=== PATIENT | female | born 1990 | race Two or more races ===

== ENCOUNTER 2024-07-21 14:22 | Emergency (ER) | payer MEDICAID, OTHER ==
[~2024-07-21] VITALS: Ht 152.4 cm; Wt 59.9 kg
[2024-07-21 15:36] LABS: Urine Bacteria None Seen /hpf (None Seen)
[2024-07-21 15:47] LABS: Urine Blood Negative /uL (Negative); Urine Clarity Turbid (Clear); Urine Color Colorless (Yellow); Urine Mucus FEW (None Seen); Urine Protein, UAD Negative (Negative); Urine Specific Gravity 1.018 (1.001-1.035); Urine Squamous Epithelial Cell MOD /hpf (<5); Urine Urobilinogen Normal (Negative); Urine WBC 4 /HPF (0-5); Urine pH 6.5 (5.0-9.0)
--- NOTE | 2024-07-21 16:06 | ED.PDOC ---
History of Present Illness HPI Comments 34F presents to the ER w/ no prior Hx associated arrives to the c/c of ABD pain. Pt reports that she has been having diffuse ABD pain which "feel like cramps" and light fever for 1 week. Spouse notes that the pt is and is a 51-50. Denies chills, fever, N/V/D, SOB, CP or no other associated symptom's, modifiers, recent injuries or sick contacts at this time. Patient denies any vaginal bleed or vaginal discharge. vital signs were stable on arrival Chief Complaint: Abdominal Pain Time Seen by MD: 15:00 Reviewed Notes: Nurses Notes, Medications, Allergies Allergies: Coded Allergies: NO KNOWN ALLERGIES (Unverified , 07/21/24) Information Source: Patient, Spouse Mode of Arrival: Ambulatory Severity: Moderate Timing: Days Duration: Since onset, Days Prehospital treatment: None Past Medical History PAST MEDICAL HISTORY: Denies Surgical History: Denies all surgeries DRAPERY HEMMER AUTOMATIC History: No Pertinent DRAPERY HEMMER AUTOMATIC History Family History Family History: Reviewed,noncontributory to illness, Unknown Social History Smoker: Cigarettes Alcohol: Denies ETOH Use Drugs: Denies Drug Use Lives In: Home Constitutional: reports: fever; denies: chills, diaphoresis, fatigue, malaise, sweats, weakness, others EENTM: denies: blurred vision, double vision, ear bleeding, ear discharge, ear drainage, ear pain, ear ringing, eye pain, eye redness, hearing loss, mouth pain, mouth swelling, nasal discharge, nose bleeding, nose congestion, nose pain, photophobia, tearing, throat pain, throat swelling, voice changes, others Respiratory: denies: cough, hemoptysis, orthopnea, SOB at rest, shortness of breath, SOB with excertion, stridor, wheezing, others Cardiovascular: denies: chest pain, dizzy spells, diaphoresis, Dyspnea on exertion, edema, irregular heart beat, left arm pain, lightheadedness, palpitations, PND, syncope, others Gastrointestinal: reports: abdominal pain, nausea; denies: abdomen distended, blood streaked bowels, constipated, diarrhea, dysphagia, difficulty swallowing, hematemesis, melena, poor appetite, poor fluid intake, rectal bleeding, rectal pain, vomiting, others Genitourinary: denies: abnormal vagina bleeding, burning, dyspareunia, dysuria, flank pain, frequency, hematuria, incontinence, pain, , vagina dischar ge, urgency, others Neurological: denies: dizziness, fainting, headache, left sided numbness, left sided weakness, numbness, paresthesia, pre-existing deficit, right sided numbness, right sided weakness, seizure, speech problems, tingling, tremors, weakness, others Musculoskeletal: denies: back pain, gout, joint pain, joint swelling, muscle pain, muscle stiffness, neck pain, others Integumetry: denies: bruises, change in color, change in hair/nails, dryness, laceration, lesions, lumps, rash, wounds, others Allergic/Immunocompromised: denies: Difficulty Healing, Frequent Infections, Hives, Itching, others Hematologic/Lymphatic: denies: anemia, blood clots, easy bleeding, easy bruising, swollen glands, others Endocrine: denies: excessive hunger, excessive sweating, excessive thirst, excessive urination, flushing, intolerance to cold, intolerance to heat, unexplained weight gain, unexplained weight loss, others Psychiatric: reports: suicidal; denies: anxiety, bipolar disorder, depression, hopeless, panic disorder, schizophrenia, sleepless, others All Other Systems: Reviewed and Negative Physical Exam General Appearance: Mild Distress (Patient has a mild discomfort at time of evaluation.), Normal HEENT: Normal ENT Inspection, Pharynx Normal, TMs Normal Neck: Full Range of Motion, Non-Tender, Normal, Normal Inspection Respiratory: Chest Non-Tender, Lungs Clear, No Accessory Muscle Use, No Respiratory Distress, Normal Breath Sounds Cardiovascular: No Edema, No JVD, No Murmur, No Gallop, Normal Peripheral Pulses, Regular Rate/Rhythm Breast Exam: Deferred Gastrointestinal: No Pulsatile Mass, Normal Bowel Sounds, Soft, Other ( Diffuse abdominal tenderness to palpation throughout the periumbilical and epigastric region. No signs of trauma. Abdomen was reasonably soft. Mild suprapubic tenderness.) Genitalia: Deferred Pelvic: Deferred Rectal: Deferred Extremities: No calf tenderness, Normal capillary refill, Normal inspection, Normal range of motion, Non-tender, No pedal edema Musculoskeletal : Apperance: Normal Neurologic: Alert, No Motor Deficits, Normal Affect, Normal Mood, No Sensory Deficits Cerebellar Function: Normal Reflexes: Normal Skin: Dry, Normal Color, Warm Lymphatic: No Adenopathy Was a procedure done? Was a procedure done?: No Differential Dx Considerations may include: , sepsis, electrolyte abnormality, UTI, viral gastroenteritis X-Ray, Labs, Meds, VS Vital Signs Date Time Temp Pulse Resp B/P (MAP) Pulse Ox O2 Delivery O2 Flow Rate FiO2 07/21/24 16:20 98.1 93 16 109/67 (81) 99 98.1 07/21/24 16:20 93 16 99 Room Air 07/21/24 16:18 74 19 95 Room Air* 0 21 07/21/24 15:38 98.0 99 16 116/83 (94) 100 98.0 Lab Test 07/21/24 15:48 07/21/24 15:27 Range/Units White Blood Count 9.3 4.4-10.8 10^3/uL Red Blood Count 4.47 4.0-5.20 10^6/uL Hemoglobin 14.1 12.2-16.2 g/dL Hematocrit 41.4 36.0-46.0 % Mean Corpuscular Volume 92.6 80.0-100.0 fL Mean Corpuscular Hemoglobin 31.5 28.0-32.0 pg Mean Corpuscular Hemoglobin Concent 34.0 32.0-36.0 g/dL Red Cell Distribution Width 13.8 11.8-14.3 % Platelet Count 241 140-450 10^3/uL Mean Platelet Volume 8.8 6.9-10.8 fL Neutrophils (%) (Auto) 74.8 37.0-80.0 % Lymphocytes (%) (Auto) 16.6 10.0-50.0 % Monocytes (%) (Auto) 5.7 0.0-12.0 % Eosinophils (%) (Auto) 2.5 0.0-7.0 % Basophils (%) (Auto) 0.4 0.0-2.0 % Neutrophils # (Auto) 7.0 1.6-8.6 10 ^3/uL Lymphocytes # (Auto) 1.5 0.4-5.4 10 ^3/uL Monocytes # (Auto) 0.5 0-1.3 10 ^3/uL Eosinophils # (Auto) 0.2 0-0.8 10 ^3/uL Basophils # (Auto) 0 0-0.2 10 ^3/uL Nucleated Red Blood Cells 0.0 % Sodium Level 137 136-145 mmol/L Potassium Level 3.7 3.5-5.1 mmol/L Chloride Level 105 98-107 mmol/L Carbon Dioxide Level 25 20-31 mmol/L Anion Gap 7 5-15 Blood Urea Nitrogen 5 L 9-23 mg/dL Creatinine 0.42 L 0.550-1.02 mg/dL Glomerular Filtration Rate Calc 130 >90 mL/min BUN/Creatinine Ratio 11.9 10.0-20.0 Serum Glucose 105 74-106 mg/dL Calcium Level 9.2 8.7-10.4 mg/dL Lipase 26 12-53 U/L Beta HCG, Quantitative 67972.1 H 1.5-4.2 mIU/mL Urine Color Colorless Yellow Urine Clarity Turbid H Clear Urine pH 6.5 5.0-9.0 Urine Specific [place] 1.018 1.001-1.035 Urine Protein Negative Negative Urine Ketones Negative Negative Urine Blood Negative Negative /uL Urine Nitrite 2+ H Negative Urine Bilirubin Negative Negative Urine Urobilinogen Normal Negative mg/dL Urine Leukocyte Esterase 2+ Negative /uL Urine RBC 2 0 - 4 /hpf Urine Microscopic WBC 4 0-5 /HPF Urine Squamous Epithelial Cells Mod <5 /hpf Urine Bacteria None seen None Seen /hpf Urine Mucus Few None Seen Urine Glucose Normal Normal mg/dL Current Medications Medications (Trade) Dose Ordered Sig/Abrahan Route Start Time Stop Time Status Last Admin Dicyclomine HCl (Bentyl Injection) 20 mg ONCE ONCE IM 07/21/24 15:45 07/21/24 15:46 DC 07/21/24 16:15 Ondansetron HCl (Zofran Po) 4 mg ONCE ONCE PO 07/21/24 15:45 07/21/24 15:46 DC 07/21/24 16:15 X-Ray, Labs, Meds, VS Comment All studies were reviewed by me personally. [place] [address]. additional serum laboratories were unremarkable for any systemic processes. Urinalysis confirmed a UTI. Patient will be given antibiotics to address her urinary tract infection and has been advised to follow up with a public address system installer for management of her newly diagnosed . Time of 1ST Reevaluation: 17:08 Reevaluation 1ST: Improved Consultation: PCP, committee member Patient Education/Counseling: Diagnosis, Treatment, Prognosis Family Education/Counseling: Diagnosis, Treatment, Prognosis Departure 1 Departure Time of Disposition: 17:09 Impression: Primary Impression: Additional Impression: UTI (urinary tract infection) Disposition: HOME / SELF CARE / HOMELESS Condition: Stable Additional Instructions: Advised patient utilize antibiotics as directed, additional medication as needed and follow up with public address system installer for management of her Newly diagnosed . e-Prescriptions Acetaminophen (Acetaminophen) 500 Mg Tab 500 MG PO Q4HP PRN, #30 TAB Prov: PUJA HINOJOSA PAC 07/21/24 Ondansetron Odt 4MG Tab (ZOFRAN PO) 4 Mg Tb 4 MG PO Q6HP PRN, #20 TAB ODT TAB-DISSOLVE IN MOUTH, THEN SWALLOW Prov: PUJA HINOJOSA PAC 07/21/24 Cephalexin (KEFLEX CAPSULE) 250 Mg Cp 1 CAP PO QID for 7 Days, #28 CAP Prov: PUJA HINOJOSA 07/21/24 Discharged With: Self, Spouse Critical Care Note Critical Care Time?: No Stability Stability form required: No Heart Score Heart Score: Heart Score Response (Comments) Value History N/A 0 EKG N/A 0 Age N/A 0 Risk Factors N/A 0 Troponin N/A 0 Total 0 I personally scribed for PUJA HINOJOSA PAC ([email or web address]) on 07/21/24 at 16:06. Electronically submitted by Yury Pino ([email or web address]). PUJA HINOJOSA PAC Jul 21, 2024 16:06
[2024-07-21 16:14] LABS: Basophils # (auto) 0 10 ^3/uL (0-0.2); Basophils % (auto) 0.4 % (0.0-2.0); Eosinophils # (auto) 0.2 10 ^3/uL (0-0.8); Eosinophils % (auto) 2.5 % (0.0-7.0); Hematocrit 41.4 % (36.0-46.0); Hemoglobin 14.1 g/dL (12.2-16.2); Lymphocytes # (auto) 1.5 10 ^3/uL (0.4-5.4); Lymphocytes % (auto) 16.6 % (10.0-50.0); Mean Corpuscular Hemoglobin 31.5 pg (28.0-32.0); Mean Corpuscular Volume 92.6 fL (80.0-100.0); Monocytes # (auto) 0.5 10 ^3/uL (0-1.3); Monocytes % (auto) 5.7 % (0.0-12.0); Neutrophils % (auto) 74.8 % (37.0-80.0); Platelet Count (auto) 241 10^3/uL (140-450); Red Blood Cells 4.47 10^6/uL (4.0-5.20); Red Cell Distribution Width 13.8 % (11.8-14.3); White Blood Cell 9.3 10^3/uL (4.4-10.8)
[2024-07-21] MEDS: DICYCLOMINE HCL (10MG/ML) 2 ML AMPULE IM ONE (16:15)
[2024-07-21] MEDS: ONDANSETRON ODT 4 MG TAB PO ONE (16:15)
[2024-07-21 16:18] VITALS: PULSE 74; RESP 19; O2SAT 95
[2024-07-21 16:20] VITALS: BP 109/67; PULSE 93; RESP 16; TEMP 98.1; O2SAT 99
[2024-07-21 16:29] LABS: Chloride 105 mmol/L (98-107); Potassium 3.7 mmol/L (3.5-5.1); Sodium 137 mmol/L (136-145)
[2024-07-21 16:30] LABS: Anion Gap 7 (5-15); Calcium 9.2 mg/dL (8.7-10.4); Carbon Dioxide 25 mmol/L (20-31)
[2024-07-21 16:35] LABS: BUN/Creatinine Ratio 11.9 (10.0-20.0); Glucose 105 mg/dL (74-106); Lipase 26 U/L (12-53)
[2024-07-21 16:40] LABS: Blood Urea Nitrogen 5 mg/dL (9-23)
[2024-07-21] MEDS ORDERED: ZOFR4T PO (17:10)
[2024-07-21] MEDS ORDERED: CEPH250C PO (17:10)
[2024-07-21] MEDS ORDERED: ACET500T58 PO (17:10)
== END 2024-07-21 17:48 | disposition home or self-care (01) ==
LOC: ER 14:30
DX: O23.41 Unspecified infection of urinary tract in pregnancy, first trimester (principal); N39.0 Urinary tract infection, site not specified; R10.2 Pelvic and perineal pain; O99.331 Smoking (tobacco) complicating pregnancy, first trimester; F17.210 Nicotine dependence, cigarettes, uncomplicated; Z3A.00 Weeks of gestation of pregnancy not specified
CPT/HCPCS: 36415; 80048; 81001; 83690; 84702; 85025; 96372; 99283; J0500; Q0162

== ENCOUNTER 2024-10-19 17:45 | Observation (INO) | payer MEDICAID ==
[~2024-10-19] VITALS: Ht 152.4 cm; Wt 63.5 kg
[~2024-10-19 17:45] MED LIST: ACET500T58 PO; CEPH250C PO; ZOFR4T PO
--- NOTE | 2024-10-19 20:34 | DVH ---
OB ULTRASOUND, LIMITED CLINICAL INDICATION: contractions TECHNIQUE: Multiple grayscale ultrasound and M-mode images were obtained of the pelvis for evaluation of intrauterine . COMPARISON: None FINDINGS: A single living fetus is seen in cephalic presentation. Biparietal diameter: 7.21 cm (29 weeks, 5 days) Head Circumference: 27.86 cm (30 weeks, 3 days) Abdomen Circumference: 27.18 cm (31 weeks, 2 days) Femur Length: 5.91 cm (30 weeks, 6 days) Estimated weight: 1667 grams (+/- 250 grams). 3 lb 11 oz Placenta: Anterior. Amniotic fluid: Visibly normal. Cervical length is 3.6 cm and closed heart rate: 128 beats/min. A complete anatomic survey was not performed on this exam. IMPRESSION: Single living intrauterine with an estimated gestational age of 30 weeks, 4 days, corresp onding to an estimated date of delivery of 12/24/2024.
[2024-10-19 21:18] LABS: Urine Bacteria FEW /hpf (None Seen); Urine Blood Negative /uL (Negative); Urine Clarity Turbid (Clear); Urine Color Dark-Yellow (Yellow); Urine Mucus FEW (None Seen); Urine Protein, UAD 1+ (Negative); Urine Specific Gravity 1.036 (1.001-1.035); Urine Squamous Epithelial Cell MOD /hpf (<5); Urine Urobilinogen 8 mg/dL (Negative); Urine WBC 11 /HPF (0-5)
[2024-10-19 21:45] LABS: Amphetamine Screen, Urine Pos (NEGATIVE); Barbiturate Scree,Urine Neg (NEGATIVE); Benzodiazephine Screen, Urine Neg (NEGATIVE); Cannabinoid Screen, Urine Neg (NEGATIVE); Cocaine Screen, Urine Neg (NEGATIVE); Opiate Scree,Urine Neg (NEGATIVE); Phencyclidine Screen, Urine Neg (NEGATIVE)
--- NOTE | 2024-10-24 14:29 | DVHDS2 ---
Physician Discharge Progress N Final Diagnosis: ucs left ama Operations or Procedures: Operations or Procedures nst,sono nst reactive reviewed Condition on Discharge: Good Disposition: Home Discharge Instructions: Diet: Regular Activity: No Restrictions, As Tolerated Medications: na Follow Up Care: Specialist: left ama Discharge Statement: "Patient was advised to return to the ER or call 911 if any headaches, dizziness, shortness of breath, chest pain, abdominal pain, bleeding, fevers, or worsening of medical condition. Patient was counseled about treatment plan, medications, possible side effects, patientverbalized understanding. All questions were answered to the best of my ability. This discharge took greater then 30 minutes in planning, reviewing documentation, counseling the patient, and discussing with other team members." Visit Coding OBGYN Date of Service: Oct 19, 2024 Billing Provider: JALEEL RICH DO PIN DRAFTING MACHINE TENDER Common Visit Codes: 15060-QOXIAXZ OBS CARE (HIGH) PIN DRAFTING MACHINE TENDER Procedure Codes: 84853-94- NON-STRESS TEST JALEEL RICH DO Oct 24, 2024 14:29
== END 2024-10-19 21:43 | disposition home or self-care (01) ==
LOC: LDRP 17:45
PROVIDERS: ADMIT Obstetrics & Gynecology; ATTEND Obstetrics & Gynecology
DX: O47.03 False labor before 37 completed weeks of gestation, third trimester (principal); Z36.89 Encounter for other specified antenatal screening; Z79.899 Other long term (current) drug therapy; Z3A.31 31 weeks gestation of pregnancy
CPT/HCPCS: 59025; 76805; 80307; 81001; 81002; 94760; G0378

== ENCOUNTER 2024-11-04 03:50 | Inpatient (IN) | payer MEDICAID ==
[~2024-11-04] VITALS: Ht 154.9 cm; Wt 54.4 kg
[2024-11-04] MEDS: LACTATED RINGER'S 1,000 ML IV SCH (04:10)
[2024-11-04] MEDS: CLINDAMYCIN 900MG IV 50 ML IV ONE ×2 (04:29→05:00)
[2024-11-04] MEDS ORDERED: WITCH HAZEL-GLYCERIN PAD TOP PRN (04:30)
[2024-11-04] MEDS ORDERED: DERMOPLAST 60ML BOTTLE TOP PRN (04:30)
[2024-11-04] MEDS ORDERED: PHISODERM TOP SOLN 240ML BTL TOP PRN (04:30)
[2024-11-04] MEDS ORDERED: LIDOCAINE 2%HCL (LOCAL ANESTH.) INJ 20ML MDV IJ PRN (04:30)
[2024-11-04 04:37] LABS: Basophils # (auto) 0.1 10 ^3/uL (0-0.2); Basophils % (auto) 0.8 % (0.0-2.0); Eosinophils # (auto) 0 10 ^3/uL (0-0.8); Eosinophils % (auto) 0.3 % (0.0-7.0); Hematocrit 35.9 % (36.0-46.0); Hemoglobin 12.3 g/dL (12.2-16.2); Lymphocytes # (auto) 2.7 10 ^3/uL (0.4-5.4); Lymphocytes % (auto) 22.7 % (10.0-50.0); Mean Corpuscular Hemoglobin 29.8 pg (28.0-32.0); Mean Corpuscular Hgb Conc. 34.3 g/dL (32.0-36.0); Mean Corpuscular Volume 86.7 fL (80.0-100.0); Monocytes # (auto) 0.7 10 ^3/uL (0-1.3); Neutrophils # (auto) 8.4 10 ^3/uL (1.6-8.6); Neutrophils % (auto) 70.2 % (37.0-80.0); Nucleated Red Blood Cells % 0.1 %; Platelet Count (auto) 261 10^3/uL (140-450); Red Blood Cells 4.14 10^6/uL (4.0-5.20); Red Cell Distribution Width 14.3 % (11.8-14.3); White Blood Cell 11.9 10^3/uL (4.4-10.8)
[2024-11-04 04:56] LABS: Albumin 3.7 g/dL (3.2-4.8); Anion Gap 10 (5-15); Aspartate Aminotransferase 14 U/L (<34); BUN/Creatinine Ratio 15.8 (10.0-20.0); Bilirubin, Total 0.6 mg/dL (0.2-1.0); Blood Urea Nitrogen 9 mg/dL (9-23); Calcium 8.9 mg/dL (8.7-10.4); Carbon Dioxide 21 mmol/L (20-31); Chloride 104 mmol/L (98-107); Glucose 89 mg/dL (74-106); Potassium 4.1 mmol/L (3.5-5.1); Total Protein 6.4 g/dL (5.7-8.2)
[2024-11-04 04:58] LABS: Alanine Aminotransferase < 9 U/L (7-40); Alkaline Phosphatase 177 U/L (46-116); Sodium 135 mmol/L (136-145)
[2024-11-04] MEDS: METHYLERGONOVINE MALEATE 0.2 MG/ML AMP IM ONE (04:58)
[2024-11-04] MEDS: DIPHENOXYLATE W/ATROPINE 2.5 MG TAB PO ONE (05:00)
[2024-11-04] MEDS: DIPHENOXYLATE W/ATROPINE 2.5 MG TAB ONE (05:04)
[2024-11-04 05:05] LABS: INR 0.89 (0.9-1.15); Partial Thromboplastin Time 26.8 SEC (24.5-34.5); Prothrombin Time 9.5 sec (9.3-11.8)
[2024-11-04] MEDS: CARBOPROST TROMETHAMINE 250 MCG/1ML VIAL IM ONE ×2 (05:05→05:19)
[2024-11-04] MEDS: ONDANSETRON HCL 4 MG/2 ML VIAL ONE (05:05)
--- NOTE | 2024-11-04 05:12 | DVH ---
EXAM: US OB ULTRASOUND COMP GTR 14 WKS HISTORY: no pnc TECHNIQUE: Multiple real-time grayscale images of the gravid uterus with duplex Doppler color flow an d M-mode spectral analysis. COMPARISON: US OB ULTRASOUND COMP GTR 14 WKS on DOS: 10/19/24 FINDINGS: IUP single live fetus at 32 weeks 4 days average ultrasound age (AUA) based on composite averages of the BPD, head circumference, abdominal circumference and femur length Age based on (early ultrasound) : 32 weeks 4 day MEASUREMENTS: BPD: 8.0 cm GA: 30 w 6 d HC: 30.5 cm GA: 33 w 6 d AC: 28.6 cm GA: 32 w 4 d FL: 6.1 cm GA: 31 w 5d Estimated weight 1964 grams; 44th percentile. heart rate 153 beats per minute Active labor. ANATOMIC SURVEY: Complete anatomic survey not performed at this time. Cephalic Presentation Anterior placenta without previa or abruption IMPRESSION: 1. IUP single live fetus at 32 weeks 4 days AUA corresponding to an VINCENZO of 12/26/2024. 2. No abnormality detected. Limited exam secondary to active labor.
[2024-11-04 05:30] LABS: Uric Acid 5.2 mg/dL (3.1-7.8)
--- NOTE | 2024-11-04 05:38 | DVHHP2 ---
OB CC & HPI Date Date of Admission: Nov 04, 2024 Patient Identification: : unknown Para: unknown EDC: Dec 24, 2024 EGA: 32wks Chief Complaints: Reason for admission: active labor, labor Admission Nurse Assessment Rev: No History of Present Complaints pt is admitted for labor ,active labor ,rom for many days according to pt. pt had a visit to er which was held 51-50 she gives hx of and another report of .pt is mentally not able to give good hx.she presented in active labor with rom at 7cm Past Medical History Cardiac: No pertinent Hx Pulmonary: No pertinent Hx Central Nervous System: No pertinent Hx GI: No pertinent Hx Hemotology/Oncology: No pertinent Hx Hepatobiliary: No pertinent Hx Psychiatric: No pertinent Hx Musculoskeletal: No pertinent Hx Rheumotologic: No pertinent Hx Infectious Disease: No peritnent Hx ENT: No pertinent Hx Renal/: No pertinent Hx Endocrine: No pertinent Hx Dermatology: No pertinent Hx Past Surgical History: No pertinent Hx OB History OB History Care: None Ultrasounds: No ultrasounds Obstetrical Complications: None Medical Complications: None Allergies: Coded Allergies: Latex (Verified Allergy, Severe, 10/19/24) Home Meds Active Scripts Acetaminophen (Acetaminophen) 500 Mg Tab, 500 MG PO Q4HP PRN, #30 TAB Prov:PUJA HINOJOSA PAC 07/21/24 Ondansetron Odt 4MG Tab (ZOFRAN PO) 4 Mg Tb, 4 MG PO Q6HP PRN, #20 TAB ODT TAB-DISSOLVE IN MOUTH, THEN SWALLOW Prov:PUJA HINOJOSA PAC 07/21/24 Cephalexin (KEFLEX CAPSULE) 250 Mg Cp, 1 CAP PO QID for 7 Days, #28 CAP Prov:PUJA HINOJOSA PAC 07/21/24 Current Medications Current Medications Medications (Trade) Dose Ordered Sig/Abrahan Route PRN Reason Start Time Stop Time Status Last Admin Lactated Ringer's 1,000 ml @ 125 mls/hr Q8H IV 11/04/24 04:30 11/04/24 04:10 Witchilango Adeola (Tucks) 1 pad PRN PRN TOP PERINEAL AREA DISCOMFORT 11/04/24 04:30 Sodium Lauryl Sulfate (Phisoderm) 240 ml PRN PRN TOP PERINEAL AREA DISCOMFORT 11/04/24 04:30 Benzocaine (Dermoplast) 1 applic PRN PRN TOP PERINEAL AREA DISCOMFORT 11/04/24 04:30 Lidocaine HCl (Xylocaine) 20 ml ONCE PRN IJ PERINEAL AREA DISCOMFORT 11/04/24 04:30 Family & Social History Family/Social History Blood Type: Unknown Rubella: unknown RPR/VDRL: Unknown GBS Status: Unknown HBsAG: Unknown Review of Systems Constitutional: No symptom reported Ears, Nose, & Throat: No symptom reported Eyes: No symptom reported Pulmonary/Respiratory: No symptom reported Cardiovascular: No symptom reported Gastrointestinal: No symptom reported Genitourinary: No symptom reported Musculoskeletal: No symptom reported Skin: No symptom reported Psychiatric: No symptom reported Endocrine: No symptom reported Hemotologic/Lymphatic: No symptom reported OB Admission Exam Physical Exam HEENT: TMs Normal, Fontanelles Normal, Nasal Mucosa Normal, Eyes non-injected, Oropharynx Normal, PERRLA, Moist Membranes, EOMI Heart: Rhythm Normal Lungs: Clear Abdomen: Non tender Extremities: Normal Reflexes: Normal Cervical Dilatation: 10cm Effacement: 100% Station: +2 Membranes: Ruptured Amniotic Fluid: Clear Heart Rate: 130's Accelerations: Accelerations Present Decelerations: No Decelerations Short Term Variability: Present Halfway Variability: Average (6-25) Contractions on Admission: < 5 Minutes Apart Intensity: Moderate OB Plan Plan Admitting Diagnosis: PTL 32wks no care,ama,meth positive ,previous cs x1 Plan: Expectant Management Other Plan: informed consent obtained Visit Coding OBGYN Date of Service: Nov 04, 2024 Billing Provider: JALEEL RICH DO PHYSICAL AERODYNAMICIST Common Visit Codes: [id number] OBS CARE (HIGH) PHYSICAL AERODYNAMICIST Procedure Codes: 26999-57- NON-STRESS TEST JALEEL RICH DO Nov 04, 2024 05:38
--- NOTE | 2024-11-04 05:42 | LDN2 ---
Labor and Delivery Note Date 11/04/24 Age 34 unknown g20? Para 15 ? EDC 8-17 EGA 32 wks Diagnosis labor,ama,no care,drug use Vaginal Delivery: VTX Vacuum Assisted: No Placenta: Spontaneous Sex: Male Apgars 6-7 Nuchal Cord Transected: No Amniotic Fluid: Clear Anesthesia none Episiotomy: No Extension: No EBL 300ml Labs Laboratory Tests 11/04/24 04:23: HIV (1&2) Antibody Negative Complications none Conditions stable Comments/Significant Med Brinda spec exam no cxal lac Visit Coding OBGYN Date of Service: Nov 04, 2024 Billing Provider: JALEEL RICH DO HOME HEALTH NURSE Common Visit Codes: [id number] OBS CARE (HIGH) HOME HEALTH NURSE Procedure Codes: 96740-VVC DELIVERY ONLY JALEEL RICH DO Nov 04, 2024 05:42
[2024-11-04 05:56] LABS: Urine Bacteria None Seen /hpf (None Seen)
[2024-11-04] MEDS: DEXTROSE 10% 250 ML IV ONE (06:00)
[2024-11-04 06:35] LABS: Urine Blood Negative /uL (Negative); Urine Clarity Clear (Clear); Urine Color Yellow (Yellow); Urine Mucus FEW (None Seen); Urine Protein, UAD 1+ (Negative); Urine Squamous Epithelial Cell FEW /hpf (<5); Urine Urobilinogen 3 mg/dL (Negative); Urine WBC 2 /HPF (0-5)
[2024-11-04 06:55] LABS: Amphetamine Screen, Urine Pos (NEGATIVE); Barbiturate Scree,Urine Neg (NEGATIVE); Benzodiazephine Screen, Urine Neg (NEGATIVE); Cannabinoid Screen, Urine Neg (NEGATIVE); Cocaine Screen, Urine Neg (NEGATIVE); Opiate Scree,Urine Neg (NEGATIVE); Phencyclidine Screen, Urine Neg (NEGATIVE)
[2024-11-04] MEDS ORDERED: ONDANSETRON ODT 4 MG TAB PO PRN (07:45)
[2024-11-04] MEDS ORDERED: IBUPROFEN 600 MG TAB PO PRN (07:45)
[2024-11-04] MEDS: LACT. RINGERS/OXYTOCIN 20UNITS 500 ML IV ONE ×2 (08:10→08:11)
[2024-11-04] MEDS: TRANEXAMIC ACID 1,000 MG in SODIUM CHL 0.9% 100 ML IV ONE (08:12)
[2024-11-04] MEDS: ONDANSETRON HCL 4 MG/2 ML VIAL IV PRN (08:13)
[2024-11-04] MEDS: CARBOPROST TROMETHAMINE 250 MCG/1ML VIAL IM PRN (08:13)
[2024-11-04] MEDS: METHYLERGONOVINE MALEATE 0.2 MG/ML AMP IM PRN (08:13)
[2024-11-04 11:00] VITALS: BP 113/77; PULSE 59; RESP 20; TEMP 98.2; O2SAT 99
[2024-11-04] MEDS: ACETAMINOPHEN 325 MG TAB PO PRN (11:55)
[2024-11-04 15:00] VITALS: BP 91/63; PULSE 66; RESP 15; TEMP 98.7; O2SAT 99
--- NOTE | 2024-11-04 15:23 | DVHINCON2 ---
Date of Service if different f: Nov 04, 2024 Consultation ([facility]) Consulting Physician: GEORGIA GARCIA MD Progress: Somewhat better Labs Laboratory Tests Test 11/04/24 04:23 11/04/24 05:55 White Blood Count 11.9 10^3/uL (4.4-10.8) Red Blood Count 4.14 10^6/uL (4.0-5.20) Hemoglobin 12.3 g/dL (12.2-16.2) Hematocrit 35.9 % (36.0-46.0) Mean Corpuscular Volume 86.7 fL (80.0-100.0) Mean Corpuscular Hemoglobin 29.8 pg (28.0-32.0) Mean Corpuscular Hemoglobin Concent 34.3 g/dL (32.0-36.0) Red Cell Distribution Width 14.3 % (11.8-14.3) Platelet Count 261 10^3/uL (140-450) Mean Platelet Volume 9.5 fL (6.9-10.8) Neutrophils (%) (Auto) 70.2 % (37.0-80.0) Lymphocytes (%) (Auto) 22.7 % (10.0-50.0) Monocytes (%) (Auto) 6.0 % (0.0-12.0) Eosinophils (%) (Auto) 0.3 % (0.0-7.0) Basophils (%) (Auto) 0.8 % (0.0-2.0) Neutrophils # (Auto) 8.4 10 ^3/uL (1.6-8.6) Lymphocytes # (Auto) 2.7 10 ^3/uL (0.4-5.4) Monocytes # (Auto) 0.7 10 ^3/uL (0-1.3) Eosinophils # (Auto) 0 10 ^3/uL (0-0.8) Basophils # (Auto) 0.1 10 ^3/uL (0-0.2) Nucleated Red Blood Cells 0.1 % Prothrombin Time 9.5 sec (9.3-11.8) Prothromb Time International Ratio 0.89 (0.9-1.15) Activated Partial Thromboplast Time 26.8 SEC (24.5-34.5) Sodium Level 135 mmol/L (136-145) Potassium Level 4.1 mmol/L (3.5-5.1) Chloride Level 104 mmol/L (98-107) Carbon Dioxide Level 21 mmol/L (20-31) Anion Gap 10 (5-15) Blood Urea Nitrogen 9 mg/dL (9-23) Creatinine 0.57 mg/dL (0.550-1.02) Glomerular Filtration Rate Calc 121 mL/min (>90) BUN/Creatinine Ratio 15.8 (10.0-20.0) Serum Glucose 89 mg/dL (74-106) Uric Acid 5.2 mg/dL (3.1-7.8) Calcium Level 8.9 mg/dL (8.7-10.4) Total Bilirubin 0.6 mg/dL (0.2-1.0) Aspartate Amino Transf (AST/SGOT) 14 U/L (<34) Alanine Aminotransferase (ALT/SGPT) < 9 U/L (7-40) Alkaline Phosphatase 177 U/L (46-116) Total Protein 6.4 g/dL (5.7-8.2) Albumin 3.7 g/dL (3.2-4.8) Treponema pallidum Antibody Reactive (Negative) Hepatitis B Surface Antigen Negative (Negative) Hepatitis C Antibody Reactive (Negative) HIV (1&2) Antibody Negative (Negative) Rubella Antibody Positive Urine Color Yellow (Yellow) Urine Clarity Clear (Clear) Urine pH 7.0 (5.0-9.0) Urine Specific [place] 1.030 (1.001-1.035) Urine Protein 1+ (Negative) Urine Ketones 1+ (Negative) Urine Blood Negative /uL (Negative) Urine Nitrite Negative (Negative) Urine Bilirubin Negative (Negative) Urine Urobilinogen 3 mg/dL (Negative) Urine Leukocyte Esterase Negative /uL (Negative) Urine RBC 2 /hpf (0 - 4) Urine Microscopic WBC 2 /HPF (0-5) Urine Squamous Epithelial Cells Few /hpf (<5) Urine Bacteria None seen /hpf (None Seen) Urine Mucus Few (None Seen) Urine Glucose Normal mg/dL (Normal) Urine Opiates Screen Neg (NEGATIVE) Urine Fentanyl Screen Neg (NEGATIVE) Urine Barbiturates Screen Neg (NEGATIVE) Urine Phencyclidine Screen Neg (NEGATIVE) Urine Amphetamines Screen Pos (NEGATIVE) Urine Benzodiazepines Screen Neg (NEGATIVE) Urine Cocaine Screen Neg (NEGATIVE) Urine Cannabinoids Screen Neg (NEGATIVE) Appetite: Very Good Side effects of medications: No Appearance: Stated age Psychomotor activity: WNL Behavioral: Cooperative Eye contact: Appropriate Speech: WNL Affect: Appropriate Mood: Euthymic Thought processes: Linear/Goal-directed Thought content: WNL Suicidal ideations: Absent Homicidal ideations: Absent Orientation: Person, Place, Time, Situation Memory intact: Recent Intellect: Below average Abstractability: Marginal Concentration: Adequate Attention: Adequate Judgement: Marginal Insight: Poor Vitals Vital Signs Date Time Temp Pulse Resp B/P (MAP) Pulse Ox O2 Delivery O2 Flow Rate FiO2 11/04/24 11:00 98.2 59 20 113/77 (89) 99 98.2 Current medications Current Medications Medications Dose Ordered Sig/Abrahan Route Start Time Stop Time Status Last Admin Dose Admin Witchilango Adeola 1 pad PRN PRN TOP 11/04/24 04:30 Sodium Lauryl Sulfate 240 ml PRN PRN TOP 11/04/24 04:30 Benzocaine 1 applic PRN PRN TOP 11/04/24 04:30 Ibuprofen 600 mg Q6HP PRN PO 11/04/24 07:45 Acetaminophen 650 mg Q4HP PRN PO 11/04/24 07:45 11/04/24 11:55 650 MG Ondansetron HCl 4 mg Q4HPRN PRN PO 11/04/24 07:45 Treatment plan discussed: With staff Medication adjusted: No Labs ordered: No Psychotherapy provided: Yes Type: Voluntary 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 Plan : Per RN the pt does not know that this baby will be taken into CPS custody and all her previous live births have also been taken into CPS custody. Recommend that a substance use navigator speaks with the pt before discharge. Currently, the pt is denying feeling depressed, denying suicidal thoughts, is reluctant to go into details of similar themes or thoughts. Pt does have a strange way about her. She has a hunched over posture and speaks with an unusual margaret. She also starts to speak indistinctly (mumbles) towards the end of a sentence. The pt denies any AVH and desire to harm anyone. There is a chance, that the pt will become very sad/angry/agitated when she finds out she cannot get discharged with her baby (who is at another hospital b/c it was a pre-term at 33 wks). It was communicated to the RN to look out for this and to re-consult for possible 5150 should something like this transpire. RN agreed with plan. Currently, there is no need for 5150 or inpatient psychiatric treatment. History of Present Illness Reason for Consult : Post depression scale scored at 14. HPI : Pt came to the ED this morning for delivery of her 6th live . Pt is g20, 5 abortions, 6 living births. Pt was on a 5150 in the past. Regarding mood, pt says her mood is not great b/c her neck is hurting a lot. This has never happened after delivery. Pt denies feeling depressed right now. Pt denies any thoughts of suicide lately. Has attempted suicide in the past, does not remember how long ago. Pt had a gun to her head and pulled the trigger, but it didn't go off. Pt feels kerry to be alive. Pt does not feel like she will start feeling suicidal. The only thing that could get feeling depressed is if she cannot be a mom to her baby and the other kids she lives with. Pt denies any hx of hallucinations. Past Psychiatric History : Was on 5150 recently. Past Medical History : Recently delivered a live baby. Social History : Uses meth every day, alcohol 2 times this year, smokes cigarettes every day. Denies other dug use. Assessment/Diagnosis/Plan Reviewed: Care Plan GEORGIA GARCIA MD Nov 04, 2024 15:23
[2024-11-04 19:00] VITALS: BP 114/58; PULSE 58; RESP 19; TEMP 98.7; O2SAT 99
[2024-11-04 20:45] LABS: RAPID PLASMA REAGIN REACTIVE (NONREACTIVE); RAPID PLASMA REAGIN QUANT 1:16 Titer (NONREACTIVE)
[2024-11-04 23:00] VITALS: BP 102/69; PULSE 60; RESP 18; TEMP 98.6; O2SAT 99
[2024-11-05 03:00] VITALS: BP 93/61; PULSE 53; RESP 17; TEMP 98.7; O2SAT 100
[2024-11-05 06:45] LABS: Basophils # (auto) 0.1 10 ^3/uL (0-0.2); Basophils % (auto) 0.4 % (0.0-2.0); Eosinophils # (auto) 0.1 10 ^3/uL (0-0.8); Eosinophils % (auto) 0.3 % (0.0-7.0); Hematocrit 33.6 % (36.0-46.0); Hemoglobin 11.4 g/dL (12.2-16.2); Lymphocytes # (auto) 2.7 10 ^3/uL (0.4-5.4); Lymphocytes % (auto) 17.6 % (10.0-50.0); Mean Corpuscular Hemoglobin 29.9 pg (28.0-32.0); Mean Corpuscular Hgb Conc. 34.1 g/dL (32.0-36.0); Mean Corpuscular Volume 87.6 fL (80.0-100.0); Monocytes # (auto) 1.2 10 ^3/uL (0-1.3); Monocytes % (auto) 7.6 % (0.0-12.0); Neutrophils # (auto) 11.4 10 ^3/uL (1.6-8.6); Neutrophils % (auto) 74.1 % (37.0-80.0); Nucleated Red Blood Cells % 0.1 %; Platelet Count (auto) 292 10^3/uL (140-450); Red Blood Cells 3.83 10^6/uL (4.0-5.20); White Blood Cell 15.3 10^3/uL (4.4-10.8)
[2024-11-05 07:00] VITALS: BP 106/59; PULSE 75; RESP 20; TEMP 98.4; O2SAT 92
--- NOTE | 2024-11-05 07:10 | DVHPN2 ---
Progress Note Date Seen: Nov 05, 2024 Subjective S: Lochia minimal Tolerating regular diet well. Ambulating and voiding well w/o feeling lightheaded or dizzy. Passing flatus but no BM yet. Infant transferred to higher level of care- delivery Contraceptive plan: Desires and requests to be discharged home today; wants to go and see baby vital signs Vital Sign Date Time Temp Pulse Resp B/P (MAP) Pulse Ox O2 Delivery O2 Flow Rate FiO2 11/05/24 03:00 98.7 53 17 93/61 (72) 100 98.7 Total Intake and Output 11/04/24 11/04/24 11/05/24 15:00 23:00 07:00 Output Total 1300 ml 700 ml Balance -1300 ml -700 ml medications Current Medications Medications Dose Ordered Sig/Abrahan Route Start Time Stop Time Status Last Admin Dose Admin Marques Adeola 1 pad PRN PRN TOP 11/04/24 04:30 Sodium Lauryl Sulfate 240 ml PRN PRN TOP 11/04/24 04:30 Benzocaine 1 applic PRN PRN TOP 11/04/24 04:30 Ibuprofen 600 mg Q6HP PRN PO 11/04/24 07:45 Acetaminophen 650 mg Q4HP PRN PO 11/04/24 07:45 11/04/24 11:55 650 MG Ondansetron HCl 4 mg Q4HPRN PRN PO 11/04/24 07:45 laboratory and microbiology Laboratory Tests 11/04/24 04:23 Test 11/04/24 04:23 Range/Units Serum Glucose 89 74-106 mg/dL Objective O: Alert, NAD. Afebrile, VSS Chest: heart and lung sounds normal. Breasts: Nipples intact w/o cracks or soreness Abdomen: normal BS, soft, non-tender, no rebound or guarding, fundus firm @ U- 1, lochia minimal Perineum:- no edema, or erythema, Extremities: no edema or tenderness Lochia - minimal Assessment/Plan A/P 34 yo now G? P? (pt states she doesn't know exactly her exact # of or deliveries) ppd#1 s/p doing well. Blood Type: O Rh: Positive UDS Positive Hep C Pos TPPA positive, had a dose of Bicillin at [facility] Rubella Immune Pain control with oral medications Bowel regimen: Increase fluid intake and fiber in diet, Laxative PRN PP BCM Plan: Undecided Discharge plan: May discharge home later today if condition remains stable Plan discussed with: Patient Visit Coding OBGYN Date of Service: Nov 05, 2024 Billing Provider: KARLA DE LUNA CNM [employer] Common Visit Codes: [id number] INP/OBS CARE(HIGH) KARLA DE LUNA CNM Nov 05, 2024 07:10
--- NOTE | 2024-11-05 07:25 | DVHDS2 ---
Discharge Summary Date of Admission Nov 04, 2024 at 03:50 Date of Discharge: Nov 05, 2024 Admitting Diagnosis Labor PPROM Labs/Diagnostic Data: Laboratory Results Test 11/05/24 06:09 11/04/24 05:55 11/04/24 04:23 Urine Color Yellow (Yellow) Urine Clarity Clear (Clear) Urine pH 7.0 (5.0-9.0) Urine Specific [place] 1.030 (1.001-1.035) Urine Protein 1+ (Negative) Urine Ketones 1+ (Negative) Urine Blood Negative /uL (Negative) Urine Nitrite Negative (Negative) Urine Bilirubin Negative (Negative) Urine Urobilinogen 3 mg/dL (Negative) Urine Leukocyte Esterase Negative /uL (Negative) Urine RBC 2 /hpf (0 - 4) Urine Microscopic WBC 2 /HPF (0-5) Urine Squamous Epithelial Cells Few /hpf (<5) Urine Bacteria None seen /hpf (None Seen) Urine Mucus Few (None Seen) Urine Glucose Normal mg/dL (Normal) Urine Opiates Screen Neg (NEGATIVE) Urine Fentanyl Screen Neg (NEGATIVE) Urine Barbiturates Screen Neg (NEGATIVE) Urine Phencyclidine Screen Neg (NEGATIVE) Urine Amphetamines Screen Pos (NEGATIVE) Urine Benzodiazepines Screen Neg (NEGATIVE) Urine Cocaine Screen Neg (NEGATIVE) Urine Cannabinoids Screen Neg (NEGATIVE) Eosinophils (%) (Auto) 0.3 % (0.0-7.0) Eosinophils # (Auto) 0 10 ^3/uL (0-0.8) Basophils # (Auto) 0.1 10 ^3/uL (0-0.2) Nucleated Red Blood Cells 0.1 % Prothrombin Time 9.5 sec (9.3-11.8) Prothrombin Time INR 0.89 (0.9-1.15) Activated Partial Thromboplast Time 26.8 SEC (24.5-34.5) Sodium Level 135 mmol/L (136-145) Potassium Level 4.1 mmol/L (3.5-5.1) Chloride Level 104 mmol/L (98-107) Carbon Dioxide Level 21 mmol/L (20-31) Anion Gap 10 (5-15) Blood Urea Nitrogen 9 mg/dL (9-23) Creatinine 0.57 mg/dL (0.550-1.02) Glomerular Filtration Rate Calc 121 mL/min (>90) BUN/Creatinine Ratio 15.8 (10.0-20.0) Serum Glucose 89 mg/dL (74-106) Uric Acid 5.2 mg/dL (3.1-7.8) Calcium Level 8.9 mg/dL (8.7-10.4) Total Bilirubin 0.6 mg/dL (0.2-1.0) Aspartate Amino Transferase (AST) 14 U/L (<34) Alanine Aminotransferase (ALT) < 9 U/L (7-40) Alkaline Phosphatase 177 U/L (46-116) Total Protein 6.4 g/dL (5.7-8.2) Albumin 3.7 g/dL (3.2-4.8) Rapid Plasma Reagin Titer 1:16 Titer (NONREACTIVE) Rapid Plasma Reagin Reactive (NONREACTIVE) Treponema pallidum Antibody Reactive (Negative) Hepatitis B Surface Antigen Negative (Negative) Hepatitis C Antibody Reactive (Negative) HIV (1&2) Antibody Negative (Negative) Rubella Antibody Positive Other Laboratory Tests 11/04/24 04:23 Brief Hx & Hospital Course: 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 Progressed to 2nd stage of labor and delivered a viable baby boy over an intact perineum, (see note for details). Meeting milestones Operations or Procedures Condition at Discharge: Stable Final Diagnosis/Problems List Same Delivered AMA TPPA Positive Hep C Positive Discharge Disposition: Home Discharge Instruct/Medications Diet: Regular Diet comment: Routine regular diet rich in fiber, protein, iron and vitamin C with adequate fluid intake Activity: No Restrictions, As Tolerated Activity comment: Balance activity with rest periods Follow Up/Referral: self care instructions given. emergency signs and symptoms including but not limited to pre-eclampsia precautions and signs of infection, PPH & of PPD reviewed with patient. Follow up with OB Provider in 1 week Medications: Ibuprofen 600mg every 6 hours as needed for pain. Continue Vitamin and iron Discharge Statement: self care instructions given. emergency signs and symptoms including but not limited to pre-eclampsia precautions and signs of infection, PPH & of PPD reviewed with patient. Follow up with OB Provider in 1 week "Patient was advised to return to the ER or call 911 if any headaches, dizziness, shortness of breath, chest pain, abdominal pain, bleeding, fevers, or worsening of medical condition. Patient was counseled about treatment plan, medications, possible side effects, patientverbalized understanding. All questions were answered to the best of my ability. This discharge took greater then 30 minutes in planning, reviewing documentation, counseling the patient, and discussing with other team members." ASSESSMENT ASSESSMENT Hospital Course Admitted on 11/04/2024 at 32w 6d EGA for labor & PPROM. She progressed to 2nd stage of labor and had a over an intact perineum. ( See Delivery Note for details). Normal course; meeting milestones w/o any problem or complications. Assessment Same Visit Coding OBGYN Date of Service: Nov 05, 2024 Billing Provider: KARLA DE LUNA CNM [employer] Common Visit Codes: [id number] DISCH DAY <30MIN KARLA DE LUNA CNM Nov 05, 2024 07:25
[2024-11-05 10:43] VITALS: TEMP 36.9
== END 2024-11-05 11:05 | disposition home or self-care (01) | DRG 560 ==
LOC: LDRP 03:50
PROVIDERS: ADMIT Obstetrics & Gynecology; ATTEND Obstetrics & Gynecology
PROC: 10E0XZZ Delivery of Products of Conception, External Approach (ICD-10-PCS; principal; 2024-11-04)
DX: O42.913 Preterm premature rupture of membranes, unspecified as to length of time between rupture and onset of labor, third trimester (principal); Z37.0 Single live birth; O60.14X0 Preterm labor third trimester with preterm delivery third trimester, not applicable or unspecified; O26.62 Liver and biliary tract disorders in childbirth; O99.324 Drug use complicating childbirth; Z3A.32 32 weeks gestation of pregnancy; B19.20 Unspecified viral hepatitis C without hepatic coma; F17.210 Nicotine dependence, cigarettes, uncomplicated; O99.334 Smoking (tobacco) complicating childbirth; F15.90 Other stimulant use, unspecified, uncomplicated; O09.523 Supervision of elderly multigravida, third trimester
CPT/HCPCS: 36415; 59612; 76805; 80053; 80307; 81001; 84550; 85025; 85610; 85730; 86592; 86593; 86703; 86762; 86780; 86803; 86850; 86900; 86901; 87340; 94760; 94762; 96360; 96361; 96365; 96366; 96372; 96374; G0378; J2405; J3490